=== PATIENT | male | born 1975 | race Caucasian/White ===

== ENCOUNTER 2020-05-10 17:42 | Outpatient (CLI) | payer OTHER, SELFPAY | END 2020-05-10 17:43 | disposition home or self-care (01) | LOC: ANHCOVIDVC 17:42 | DX: Z23 Encounter for immunization (principal) | CPT/HCPCS: 0001A; 91300 ==

== ENCOUNTER 2020-05-31 17:28 | Outpatient (CLI) | payer OTHER, SELFPAY | END 2020-05-31 17:29 | disposition home or self-care (01) | LOC: ANHCOVIDVC 17:28 | DX: Z23 Encounter for immunization (principal) | CPT/HCPCS: 0002A; 91300 ==

== ENCOUNTER 2023-03-30 13:50 | Emergency (ER) | payer OTHER, SELFPAY ==
--- NOTE | ~2023-03-30 | XR_ITS ---
EXAMINATION: [id number], XR thoracic spine 3V DATE: 03/30/2023 14:36 INDICATION: Posterior right lower rib and back pain post fall on ice. TECHNIQUE: 1. PA view of the chest and 3 views of the right ribs were obtained. 2. AP, lateral and lateral swimmer's views of the thoracic spine were obtained. COMPARISON: Chest radiograph dated 08/22/2010 FINDINGS: Chest and ribs: No rib fractures identified. Lungs are clear with no focal airspace opacities, pulmonary edema, pleur al effusion or pneumothorax. Cardiomediastinal silhouette is normal. Thoracic spine: Bone alignment is normal. Again seen is chronic mild anterior wedging of a midthoracic vertebral bod y, likely T7 and chronic mild right anterior vertebral body height loss at T9. Mild to moderate mid t horacic predominant spondylosis. IMPRESSION: 1. No rib fracture or acute cardiopulmonary disease. 2. Moderate thoracic spondylosis with stable appearance of chronic mild wedging of a couple lower tho racic vertebral bodies. Reviewed, dictated and finalized at location A. ING MACHINE OPERATOR IMPRESSION: 1. No rib fracture or acute cardiopulmonary disease. 2. Moderate thoracic spondylosis with stable appearance of chronic mild wedging of a couple lower thoracic vertebral bodies.
[2023-03-30 14:02] VITALS: BP 146/85; PULSE 89; RESP 16; TEMP 36.4; O2SAT 100
--- NOTE | 2023-03-30 14:13 | ED.BACK ---
HPI - Back Pain/Injury General Chief Complaint: Back Pain/Injury Stated Complaint: Injured back Time Seen by Provider: 03/30/23 14:13 Source: patient Mode of arrival: ambulatory Limitations: no limitations History of Present Illness HPI Narrative: 48 yo M presents with c/o R sided posterior rib pain and mid back pain. Pt states took one step outside and fell backwards onto his back and slid down two steps. Did not hit head. Was able to get up on his own. Pain worse when taking deep breath. All systems reviewed and negative except as noted above. Related Data Allergies Allergy/AdvReac Type Severity Reaction Status Date / Time No Known Allergies Allergy Unknown Unverified 03/30/23 13:56 Review of Systems Review of Systems: CONSTITUTIONAL: Denies fever, chills, or sweats. EYES: Denies visual changes, redness, or discharge. ENT: Denies rhinorrhea, congestion, sore throat, or otalgia. CARDIOVASCULAR: Denies chest pain, palpitations, or edema. RESPIRATORY: Denies cough or dyspnea. GASTROINTESTINAL: Denies abdominal pain, nausea, vomiting, or diarrhea. GENITOURINARY: Denies dysuria or hematuria. SKIN: Denies rash or itching. MUSCULOSKELETAL: Reports mid back and R posterior R rib pain. NEUROLOGIC: Denies headache, numbness, or weakness. PSYCHIATRIC: Denies anxiety or depression. All other systems reviewed are negative, except as documented in HPI. PMFSH Comments At time of signature, agree with nursing past medical, surgical, social and family history. There is no relevant family history pertinent to the presenting complaint. Exam Narrative: GENERAL: This is a well-nourished, well-developed patient, in no apparent distress. HEAD: normocephalic, atraumatic. EYES: PERRL. Sclera clear/white. Vision is grossly intact. EARS: External ears normal NOSE: External nose normal NECK: Neck supple, non-tender without lymphadenopathy, masses or thyromegaly. CARDIOVASCULAR: Regular rate and rhythm without murmurs, gallops, or rubs. RESPIRATORY: Clear to auscultation. Breath sounds equal bilaterally. No wheezes, rales, or rhonchi. SKIN: warm, Dry, intact with no suspicious lesions or rash, good texture and turgor. NEURO: awake, alert, and oriented to person, place and time. There were no obvious focal neurologic abnormalities. EXTREMITIES: No joint tenderness, effusion, or edema noted. BACK: pain to T8-T10, R posterior rib pain with contusion noted. Back/Spine/Pelvis: Back/spine/pelvis image: 1. contusion noted Course Course Level of Care: Express Care Visit Vital Signs Vital signs: Vital Signs Temperature 36.4 C 03/30/23 14:02 Pulse Rate 89 03/30/23 14:02 Respiratory Rate 16 03/30/23 14:02 Blood Pressure 146/85 H 03/30/23 14:02 Pulse Oximetry 100 03/30/23 14:02 Temperature 36.4 C 03/30/23 14:02 Pulse Rate 89 03/30/23 14:02 Respiratory Rate 16 03/30/23 14:02 Blood Pressure 146/85 H 03/30/23 14:02 Pulse Oximetry 100 03/30/23 14:02 Reviewed MDM - Back Pain/Injury MDM Narrative Medical decision making narrative: Discussed x-ray results with patient. Negative for fracture. will prescribe muscle relaxant and ibuprofen. recommend ice and heat. see PCP if not improving. no neuro deficits. Patient is aware of diagnosis, understands and agrees to treatment plan. Anticipatory guidance given. Patient agrees to follow-up as directed and is aware of reasons to seek care at the emergency department. Portions of this record may have been created with voice recognition software Imaging Data My impression: Agree with radiologist Radiologist's impression: EXAMINATION: [id number], XR thoracic spine 3V DATE: 03/30/2023 14:36 INDICATION: Posterior right lower rib and back pain post fall on ice. TECHNIQUE: 1. PA view of the chest and 3 views of the right ribs were obtained. 2. AP, lateral and lateral swimmer's views of the thoracic spine were obtained. COMPARISON: [facility]
== END 2023-03-30 15:27 | disposition home or self-care (01) ==
PROVIDERS: Emergency Provider Nurse Practitioner Family
DX: S30.0XXA Contusion of lower back and pelvis, initial encounter (principal); S29.012A Strain of muscle and tendon of back wall of thorax, initial encounter; W10.9XXA Fall (on) (from) unspecified stairs and steps, initial encounter
CPT/HCPCS: 71101; 72072; 99214; G0463